=== PATIENT | female | born 1930 | race Caucasian/White ===

== ENCOUNTER → 2016-07-16 | Outpatient (CLI) | payer MEDICARE, BC | END | disposition home or self-care (01) | LOC: RAD.S 09:55 | DX: Z12.31 Encounter for screening mammogram for malignant neoplasm of breast (principal); Z85.3 Personal history of malignant neoplasm of breast; Z90.11 Acquired absence of right breast and nipple ==

== ENCOUNTER 2016-09-30 08:53 | Day surgery (SDC) | payer MEDICARE, BC ==
[~2016-09-30] VITALS: Ht 172.7 cm; Wt 98.2 kg
--- NOTE | 2016-10-16 11:48 | OR ---
ADMIT: 09/30/2016 RM/LOC: [facility] MR#: [id number] [address] [id number] [place] [address] [place] [id number] Operative/Delivery Room Report SEX: F AGE: 86 : 1930 SURGERY DATE: 09/30/2016 SURGEON: Martell Horan MD PREPROCEDURE DIAGNOSIS: Rectal bleeding. POSTPROCEDURE DIAGNOSES: 1. Colon polyps. 2. Nonbleeding internal hemorrhoids. PROCEDURES: Colonoscopy, cold polypectomy, and internal hemorrhoidal banding x6. INDICATIONS: Patient is an 86-year-old with frequent rectal bleeding on chronic Xarelto who presents for colonoscopic surveillance and possible hemorrhoidal banding. FINDINGS: The patient was taken to the endoscopy suite. IV sedation was given, and placed in left lateral decubitus position. Colonoscope introduced through rectum and advanced to cecum. On careful colonoscopic examination with an excellent prep, there was sessile 0.5 cm polyp at the hepatic flexure, two 3 mm polyps of the splenic flexure, another polyp at 50 cm from the anal verge all of which were removed completely and easily with several bites of cold biopsy forceps. There was very mild sigmoid diverticular disease. The rectal mucosa was normal with some nonbleeding internal hemorrhoids. A speculum was placed in the anal canal and using a suction talent advisor, placed 6 suction bands on internal hemorrhoids. The colonoscope was removed. The patient tolerated the procedure without difficulty and transferred to recovery room in good condition. Martell Horan MD/ alli JOB #: [id number] CC: Martell Horan, Attending Physician Sara Hoyos, Family Physician
== END 2016-09-30 13:00 | disposition home or self-care (01) ==
LOC: SSS 08:53
PROC: 0DBK8ZX Excision of Ascending Colon, Via Natural or Artificial Opening Endoscopic, Diagnostic (ICD-10-PCS; principal; 2016-09-30)
PROC: 0DBE8ZX Excision of Large Intestine, Via Natural or Artificial Opening Endoscopic, Diagnostic (ICD-10-PCS; principal; 2016-09-30)
PROC: 0DBL8ZX Excision of Transverse Colon, Via Natural or Artificial Opening Endoscopic, Diagnostic (ICD-10-PCS; principal; 2016-09-30)
DX: D12.3 Benign neoplasm of transverse colon (principal); D12.6 Benign neoplasm of colon, unspecified; K64.8 Other hemorrhoids; I10 Essential (primary) hypertension; I48.91 Unspecified atrial fibrillation; E78.5 Hyperlipidemia, unspecified; K21.9 Gastro-esophageal reflux disease without esophagitis; Z79.899 Other long term (current) drug therapy; Z88.8 Allergy status to other drugs, medicaments and biological substances; Z98.890 Other specified postprocedural states; Z85.3 Personal history of malignant neoplasm of breast; Z98.49 Cataract extraction status, unspecified eye